=== PATIENT | female | born 1935 | race Caucasian/White ===

== ENCOUNTER 2018-04-20 08:48 | Observation (INO) | payer OTHER, BC ==
--- NOTE | 2018-04-20 08:50 | PDOC ---
History of Present Illness - General Chief Complaint: Head/Neck problem Stated Complaint: RIGHT HAND NUMBNESS Time Seen by Provider: 04/20/18 08:50 - History of Present Illness Initial Comments: 04/20/18 09:58 82yo female presents via ambulance for eval of R hand weakness. Pt states last time her hand felt normal was before she went to bed last night. States she woke up with a numb feeling to the hand and weakness of the hand. Pt is unable to fully flex or extend her digits. No berger. NO blurred vision. No facial droop or slurred speech. NO arm weakness. No paresthesias other than R hand. Radial pulses intact. NO cp/sob/palpitations. NO recent infections. NO f/c. NO cough. NO abd pain. No n/v/d. No urinary complaints. Pt arrived with the ambulance, but walked into the ED. Pt denies leg complaints. Pt arrives with her friend who states the patient is acting normal and is not altered. No trauma. No neck pain. No other complaints. PMHx: htn and skin ca PSHx: mohs surgery, skin ca removal All: NKDA tPA Exclusion checklist 3-4.5h - Time Elapsed Date last known well: 04/19/18 Time last known well: 23:00 Elaspsed time: Day(s) and 12 Hour(s) and 38 Minutes - Thrombolytic Therapy Candidate Is patient eligible for thrombolytic therapy: No - Ineligibility reason(s) Reasons No tPA given: Outside of window - delayed arrival (last normal was 11p last night. outside the window for tpa) NIH Stroke Scale - Last Known Well Date/Time & Onset Date Last Known Well: 04/19/18 Time Last Known Well: 23:00 - Initial Evaluation Level of consciousness: Alert Ask patient the month and their age: Answers both correctly Ask patient to open & close eyes; make fist and let go: Obeys both correctly Best gaze (horizontal eye movement): Normal Visual field testing: No visual field loss Facial paresis (Show teeth/raise eyebrows/close eyes tight): Normal symmetrical movement Motor Function: Left Arm: Normal Motor Function: Right Arm: No effort against gravity Motor Function: Left Leg: Normal (extends leg 30 degrees for 5 seconds without drift) Motor Function: Right Leg: Normal (extends leg 30 degrees for 5 seconds without drift) Limb Ataxia: No ataxia Sensory(Use pinprick test arms,legs,trunk,face/side to side): Normal Best language (Describe picture, name items, read sentences): No Aphasia Dysarthria (read several words): Normal articulation Extinction and Inattention: No abnormality - Total Score NIH Stroke Scale Score: 3 Past History - Past Medical History Allergies/Adverse Reactions: Allergies Allergy/AdvReac Type Severity Reaction Status Date / Time No Allergy Information Allergy Verified 04/20/18 11:20 Available Home Medications: Ambulatory Orders Amlodipine Besylate 2.5 mg PO DAILY 04/20/18 Aspirin [ASA -] 81 mg PO DAILY 04/20/18 Atorvastatin Calcium [Lipitor] 10 mg PO DAILY 04/20/18 Review of Systems - Review of Systems Able to Perform ROS?: Yes Is the patient limited French proficient: No Constitutional: No: Chills, Fever HEENTM: No: Eye Pain, Blurred Vision, Recent change in vision, Double Vision, Nose Congestion, Throat Pain Respiratory: No: Cough, Shortness of Breath Cardiac (ROS): No: Chest Pain, Edema, Irregular Heart Rate, Palpitations ABD/GI: No: Diarrhea, Nausea, Vomiting, Abdominal cramping : No: Burning, Dysuria Musculoskeletal: Yes: Other (R hand weakness and paresthesias). No: Back Pain, Neck Pain Integumentary: No: Rash Neurological: Yes: Paresthesia, Weakness (R hand). No: Headache, Numbness, Unsteady Gait, Ataxia All Other Systems: Reviewed and Negative *Physical Exam - Vital Signs 04/20/18 10:02 Selected Entries 04/20/18 08:50 Temperature 98.5 F Pulse Rate 64 Respiratory 18 Rate Blood Pressure 162/56 Blood Pressure 91 Mean O2 Sat by Pulse 99 Oximetry (%) Weight 70.307 kg - Physical Exam General Appearance: Yes: Nourished, Appropriately Dressed. No: Apparent Distress HEENT: positive: EOMI, KENNETH, Normal ENT Inspection, Pharynx Normal Neck: positive: Trachea midline, Supple. negative: Tender, Tender lateral, Tender midline Respiratory/Chest: positive: Lungs Clear, Normal Breath Sounds. negative: Respiratory Distress Cardiovascular: positive: Regular Rhythm, Regular Rate, S1, S2. negative: Edema Gastrointestinal/Abdominal: positive: Normal Bowel Sounds, Soft. negative: Guarding, Rebound, Tenderness Musculoskeletal: positive: Normal Inspection. negative: CVA Tenderness, Decreased Range of Motion, Muscle Spasm, Vertebral Tenderness Extremity: positive: Normal Capillary Refill, Other (R hand weakness with abduction and adduction of fingers, weakness in the wrist, sensation intact, brisk cap refill, no tendon ttp, no erythema or warmth, weakness of wrist flexion and extion). negative: Calf Tenderness Integumentary: positive: Normal Color, Dry, Warm. negative: Rash, Ecchymosis Neurologic: positive: audio installer II-XII NML intact, Fully Oriented, Alert, Responsive, Other (ambulatory with a steady gait). negative: Motor Strength 5/5 (muscle strength 5/5 to LUE and b/l LE, muscle strength is 2/5 to distal R hand and wrist), Facial Droop, Numbness, Sensory Deficit Heart Score/ECG Review - ECG Intrepretation Comment:: 04/20/18 10:08 sinus at 62, nl axis, lafb, lvh, no acute st/t wave findings ED Treatment Course - LABORATORY CBC & Chemistry Diagram: 04/20/18 09:45 04/20/18 10:10 Medical Decision Making - Medical Decision Making 04/20/18 10:05 a/p: 82yo female with R hand paresthesias and weakness since waking up this AM -last normal was last night -concern for cva, but outside the window for TPA given last normal was 11p last night. Pt with weakess to R hand -sensation intact -no signs of compartment syndrome or infection -will obtain head ct, labs, ekg, cxr -will discuss with neuro -cards: Dr. Ferrari ([facility]) -PMD: Dr. Nails -will most likely need admission for cva 04/20/18 11:[address] Nails admits to Dr. Prieto who does not come to [facility] consult placed to neuro head ct negative will give asa will call neuro - Dr. Cowart will admit for poss cva and R hand weakness case discussed with SEGUNDO means from [facility] who accepts pt to service 04/20/18 11:[address] Ferrari who will see the patient in consult 04/20/18 11:20 pt updated on results and need to stay for further eval 04/20/18 11:[address] Cowart who will see the patient in consult. poss cva vs radial nerve palsy *DC/Admit/Observation/Transfer Diagnosis at time of Disposition: Weakness of right hand, CVA (cerebral vascular accident) - Discharge Dispostion Condition at time of disposition: Guarded Decision to Admit order: Yes - Referrals Referrals: Byron Nails MD [Primary Care Provider] - - Patient Instructions - Post Discharge Activity - Attestations Physician Attestion: 04/20/18 11:09 I, Dr. Crissy Brewer, DO, attest that this document has been prepared under my direction and personally reviewed by me in its entirety. I further attest, that it accurately reflects all work, treatment, procedures and medical decision -making performed by me.
[2018-04-20 08:54] VITALS: BMI 26.6
[2018-04-20] MEDS ORDERED: HEMOQUE CONTROL SOLUTION ONE (09:26)
[2018-04-20 10:05] LABS: BASO % 2.3 % (0-2.0); EOS % 8.7 % (0-4.5); HEMATOCRIT 38.7 % (32.4-45.2); HEMOGLOBIN 12.7 GM/dl (10.7-15.3); LYMPH % 21.3 % (8-40); MCH 29.7 pg (25.7-33.7); MCHC 32.7 g/dl (32.0-36.0); MEAN CELL VOLUME 90.9 fl (80-96); MONO % 8.7 % (3.8-10.2); PLATELET COUNT 279 K/MM3 (134-434); RBC 4.26 M/mm3 (3.60-5.2); RDW 13.2 % (11.6-15.6); WHITE BLOOD COUNT 7.1 K/mm3 (4.0-10.8)
[2018-04-20 10:09] LABS: URINE APPEARANCE Clear; URINE BILIRUBIN Negative (NEGATIVE); URINE COLOR Yellow; URINE GLUCOSE (UA) Negative (NEGATIVE); URINE KETONE Negative (NEGATIVE); URINE LEUK ESTERASE 1+ (NEGATIVE); URINE NITRITE Negative (NEGATIVE); URINE PROTEIN Negative (NEGATIVE); URINE UROBILINOGEN 0.2 (0.2-1.0)
[2018-04-20 10:13] LABS: ACTIVATED PTT 25.6 SECONDS (25.2-36.5)
[2018-04-20 10:17] LABS: INR 0.98 (0.82-1.09)
[2018-04-20 10:33] LABS: EPI CELLS FEW /HPF; URINE RBC 0-1 /hpf (0-3)
[2018-04-20 10:38] LABS: ALK PHOS 76 U/L (32-92); ANION GAP 4 MMOL/L (8-16); BILIRUBIN,TOTAL 1.6 mg/dl (0.2-1.0); BLOOD UREA NITROGEN 15 mg/dl (7-18); CALCIUM 9.8 mg/dl (8.4-10.2); CHLORIDE 105 mmol/L (98-107); CO2 27 mmol/L (22-28); GLUCOSE,RANDOM 115 mg/dl (74-106); POTASSIUM 4.2 mmol/L (3.5-5.1); SGOT/AST 21 U/L (10-42); SGPT/ALT 17 U/L (10-40); SODIUM 136 mmol/L (136-145); TOT PROT 6.8 g/dl (6.4-8.3)
[2018-04-20] MEDS ORDERED: ASPIRIN 325 MG TABLET ONE (11:34)
[2018-04-20] MEDS ORDERED: ASPIRIN 81 MG CHEWABLE TABLETS PO ONE (11:38)
[2018-04-20] MEDS ORDERED: ASPIRIN 325 MG ENTERIC COATED TABLET (FP) PO ONE (12:07)
--- NOTE | 2018-04-20 12:07 | HP ---
CHIEF COMPLAINT: right hand paresthesia PCP: Dr Alfredo HISTORY OF PRESENT ILLNESS: patient is a 82-year-old female with a past medical history of hypertension, pre DM, and basal cell carcinoma. Patient reports that she awoke this morning with right hand paresthesia and weakness. She reports that she went to bed last evening (04/19/2018) at 11 PM feeling well. She awoke she noted persistent paresthesia to her right hand and inability to fully flex and extend the digits of the hand. Patient denies any headache, slurred speech. Patient denies any trauma to the extremity. ER course was notable for: (1)EKG normal sinus rhythm, normal axis, left anterior fascicular block. (2)CT of head no acute pathology (3)neurologist Dr Mayfield consulted by ED physician Dr Vazquez Recent Travel: none PAST MEDICAL HISTORY: see history of present illness PAST SURGICAL HISTORY:Mohs surgery Social History:retired resides at home alone Smoking:none Alcohol:none Drugs: none Family History:mother CVA father unknown, brother coronary artery disease. Allergies No Allergy Information Available Allergy (Verified 04/20/18 11:20) pt states shes allergic to an antibiotic begins with a C, pt unable to recall. HOME MEDICATIONS: Home Medications Medication Instructions Recorded Amlodipine Besylate 2.5 mg PO DAILY 04/20/18 Aspirin [ASA -] 81 mg PO DAILY 04/20/18 Atorvastatin Calcium [Lipitor] 10 mg PO DAILY 04/20/18 REVIEW OF SYSTEMS CONSTITUTIONAL: Absent: fever, chills, diaphoresis, generalized weakness, malaise, loss of appetite, weight change HEENT: Absent: rhinorrhea, nasal congestion, throat pain, throat swelling, difficulty swallowing, mouth swelling, ear pain, eye pain, visual changes CARDIOVASCULAR: Absent: chest pain, syncope, palpitations, irregular heart rate, lightheadedness , peripheral edema RESPIRATORY: Absent: cough, shortness of breath, dyspnea with exertion, orthopnea, wheezing, stridor, hemoptysis GASTROINTESTINAL: Absent: abdominal pain, abdominal distension, nausea, vomiting, diarrhea, constipation, melena, hematochezia GENITOURINARY: Absent: dysuria, frequency, urgency, hesitancy, hematuria, flank pain, genital pain MUSCULOSKELETAL: Absent: myalgia, arthralgia, joint swelling, back pain, neck pain SKIN: Absent: rash, itching, pallor HEMATOLOGIC/IMMUNOLOGIC: Absent: easy bleeding, easy bruising, lymphadenopathy, frequent infections ENDOCRINE: Absent: unexplained weight gain, unexplained weight loss, heat intolerance, cold intolerance NEUROLOGIC: Present: focal weakness or paresthesias Absent: headache, , dizziness, unsteady gait, seizure, mental status changes, bladder or bowel incontinence PSYCHIATRIC: Absent: anxiety, depression, suicidal or homicidal ideation, hallucinations. PHYSICAL EXAMINATION Vital Signs - 24 hr 04/20/18 04/20/18 04/20/18 08:50 10:03 11:18 Temperature 98.5 F Pulse Rate 64 Pulse Rate [ 60 65 Apical] Respiratory 18 18 Rate Blood Pressure 162/56 Blood Pressure 178/59 171/52 [Left Arm] O2 Sat by Pulse 99 99 99 Oximetry (%) 04/20/18 11:30 Temperature Pulse Rate Pulse Rate [ 70 Apical] Respiratory Rate Blood Pressure Blood Pressure 141/84 [Left Arm] O2 Sat by Pulse Oximetry (%) GENERAL: Awake, alert, and fully oriented, in no acute distress. HEAD: Normal with no signs of trauma. EYES: Pupils equal, round and reactive to light, extraocular movements intact, sclera anicteric, conjunctiva clear. No lid lag. EARS, NOSE, THROAT: Ears normal, nares patent, oropharynx clear without exudates. Moist mucous membranes. NECK: Normal range of motion, supple without lymphadenopathy, JVD, or masses. LUNGS: Breath sounds equal, clear to auscultation bilaterally. No wheezes, and no crackles. No accessory muscle use. HEART: irregular rate and rhythm, normal S1 and S2 without murmur, rub or gallop. ABDOMEN: Soft, nontender, not distended, normoactive bowel sounds, no guarding, no rebound, no masses. No hepatomegaly or splenomegaly. MUSCULOSKELETAL: Normal range of motion at all joints. No bony deformities or tenderness. No CVA tenderness. UPPER EXTREMITIES: 2+ pulses, warm, well-perfused. No cyanosis. No clubbing. No peripheral edema. right hand inability to flex and extend the digits of the hand LOWER EXTREMITIES: 2+ pulses, warm, well-perfused. No calf tenderness. No peripheral edema. NEUROLOGICAL: Cranial nerves II-XII intact. Normal speech. Normal gait. upper extremity 2/3 lower extremity 3/3 PSYCHIATRIC: Cooperative. Good eye contact. Appropriate mood and affect. SKIN: Warm, dry, normal turgor, no rashes or lesions noted, normal capillary refill. Laboratory Results - last 24 hr 04/20/18 04/20/18 04/20/18 09:29 09:33 09:45 WBC 7.1 RBC 4.26 Hgb 12.7 Hct 38.7 MCV 90.9 MCH 29.7 MCHC 32.7 RDW 13.2 Plt Count 279 MPV 9.0 Absolute Neuts (auto) 4.2 Neutrophils % 59.0 Lymphocytes % 21.3 Monocytes % 8.7 Eosinophils % 8.7 H Basophils % 2.3 H PT with INR INR PTT (Actin FS) Sodium Potassium Chloride Carbon Dioxide Anion Gap BUN Creatinine Creat Clearance w eGFR POC Glucometer [phone] Random Glucose Calcium Magnesium Total Bilirubin AST ALT Alkaline Phosphatase Creatine Kinase Troponin I 0.03 Total Protein Albumin Urine Color Urine Appearance Urine pH Ur Specific [place] Urine Protein Urine Glucose (UA) Urine Ketones Urine Blood Urine Nitrite Urine Bilirubin Urine Urobilinogen Ur Leukocyte Esterase Urine RBC Urine WBC Ur Epithelial Cells 04/20/18 04/20/18 04/20/18 09:45 10:02 10:10 WBC RBC Hgb Hct MCV MCH MCHC RDW Plt Count MPV Absolute Neuts (auto) Neutrophils % Lymphocytes % Monocytes % Eosinophils % Basophils % PT with INR 11.0 INR 0.98 PTT (Actin FS) 25.6 Sodium 136 Potassium 4.2 Chloride 105 Carbon Dioxide 27 Anion Gap 4 L BUN 15 Creatinine 1.0 Creat Clearance w eGFR 53.08 POC Glucometer Random Glucose 115 H Calcium 9.8 Magnesium 2.0 Total Bilirubin 1.6 H AST 21 ALT 17 Alkaline Phosphatase 76 Creatine Kinase 65 Troponin I Total Protein 6.8 Albumin 4.0 Urine Color Yellow Urine Appearance Clear Urine pH 6.0 Ur Specific [place] 1.010 Urine Protein Negative Urine Glucose (UA) Negative Urine Ketones Negative Urine Blood Negative Urine Nitrite Negative Urine Bilirubin Negative Urine Urobilinogen 0.2 Ur Leukocyte Esterase 1+ H Urine RBC 0-1 Urine WBC 5-8 Ur Epithelial Cells Few ASSESSMENT/PLAN: 1) neuro right upper extremity weakness r/o CVA - Ct of brain reviewed, no acute pathology - frequent neurovascular checks - continue daily asa and statin - neurology Dr Ramey consulted by ED physician, appreciate neurology input 2) cardiovascular hypertension - continue home dose amlodipine -blood pressure every 4 hours - pending lipid profile - Continuous cardiac monitoring, pending echo f/e/n - low sodium diet - replete electrolytes prn PPX - oob - physical therapy dispo: pt requires obsv admission Problem List - Problem (1) Weakness of right hand Code(s): R29.898 - [facility] SYMPTOMS AND SIGNS INVOLVING THE MUSCULOSKELETAL SYSTEM Visit type - Emergency Visit Emergency Visit: Yes ED Registration Date: 04/20/18 Care time: The patient presented to the Emergency Department on the above date and was hospitalized for further evaluation of their emergent condition. - New Patient This patient is new to me today: Yes Date on this admission: 04/21/18 - Critical Care Critical Care patient: No Hospitalist Screening - Colonoscopy Questionnaire Colonoscopy Questionnaire: Colonoscopy Questionnaire - Patient: 50 - 75 years old and never had a screening colonoscopy: No History of colon or rectal polyps, or CA: No History of IBD, Crohn's disease or UC: No History of abdominal radiation therapy as a child: No - Relative: 1 with colon or rectal CA, or polyps at age 60 or younger: No Colon or rectal CA diagnosed at age 45 or younger: No Multiple relatives with colon or rectal CA: No - Outcome: Screening Result: Negative Screen
[2018-04-20] MEDS ORDERED: ACETAMINOPHEN 325 MG TABLET (FP) PO PRN (12:08)
--- NOTE | 2018-04-20 12:25 | CONSULT ---
Admitting History and Physical - Primary Care Physician PCP: Karol Clark - Admission History of Present Illness: Per EMR: 82yo female presents via ambulance for eval of R hand weakness. Pt states last time her hand felt normal was before she went to bed last night. States she woke up with a numb feeling to the hand and weakness of the hand. Pt is unable to fully flex or extend her digits. No berger. NO blurred vision. No facial droop or slurred speech. NO arm weakness. No paresthesias other than R hand. Radial pulses intact. NO cp/sob/palpitations. NO recent infections. NO f/c. NO cough. NO abd pain. No n/v/d. No urinary complaints. Pt arrived with the ambulance, but walked into the ED. Pt denies leg complaints. Pt arrives with her friend who states the patient is acting normal and is not altered. No trauma. No neck pain. No other complaints. - Smoking History Smoking history: Never smoked - Alcohol/Substance Use Hx Alcohol Use: No History - Admission Reason For Visit: RIGHT HAND NUMBNESS
--- NOTE | 2018-04-20 15:31 | CONSULT ---
Admitting History and Physical - Primary Care Physician PCP: Karol Clark - Admission History of Present Illness: Per EMR: 82yo female presents via ambulance for eval of R hand weakness. Pt states last time her hand felt normal was before she went to bed last night. States she woke up with a numb feeling to the hand and weakness of the hand. Pt is unable to fully flex or extend her digits. No berger. NO blurred vision. No facial droop or slurred speech. NO arm weakness. No paresthesias other than R hand. Radial pulses intact. NO cp/sob/palpitations. NO recent infections. NO f/c. NO cough. NO abd pain. No n/v/d. No urinary complaints. Pt arrived with the ambulance, but walked into the ED. Pt denies leg complaints. Pt arrives with her friend who states the patient is acting normal and is not altered. No trauma. No neck pain. No other complaints. Pt presents with isolated right hand weakness, with greater difficulty with fine motor. Pt is right hand dominant. She is able to feed herself with some difficulty, but unable to open the [place] package. History Source: Patient Limitations to Obtaining History: No Limitations - Advance Directives Advance Directives: Yes: Living Will, Health Care Proxy - Smoking History Smoking history: Former smoker Have you smoked in the past 12 months: No If you are a former smoker, when did you quit?: 40 YEARS AGO - Alcohol/Substance Use Hx Alcohol Use: Yes (SOCIAL) - Social History Usual Living Arrangement: Yes: Alone, Other (Never .) Occupation: retired History - Admission Reason For Visit: WEAKNESS RIGHT HAND, CEREBROVASCULAR ACCIDENT CVA - Diagnostics CT Scan: Report Reviewed Other: Report Reviewed (keshav u/s noted) - General Mental Status: Alert and Oriented, Awake and Alert, Able to Follow Commands Attention: Intact Ability to Follow Directions: Excellent Head/Neck Control: WFL - Hearing Hearing: Functional Speech Evaluation - Communication Primary Language: FRISIAN Communication: Yes: Within Normal Limits Oral Expression Ability: Yes: No Impairment - Speech Production Able to Make Needs Known: Yes: WNL Intelligibility: Yes: WNL - Speech Characteristics Voice Loudness: Normal Voice Pitch: Yes: Normal Voice Phonatory-based Quality: Yes: Normal Speech Pattern: Normal Speech Clarity: < 100% Nasal Resonance: Normal Articulation: Yes: Precise Rate of Speech: Intact - Language/Auditory Comprehension Follows: Yes: 2 Stage Simple Commands Observation: Able to respond to yes/no queries: Yes, Yes/No Confusion: No, Comprehends Conversational Speech: Yes - Language/Verbal Expression Aphasia: Yes: Anomia (with aging. Unchanged.) Able to Respond to Simple Queries: Yes: WNL Able to Communicate Wants and Needs: Yes: WNL Functional Communication Status: Yes: WNL - Swallow Evaluation/Bedside Assessment Current Nutritional Intake: Regular, Thin Liquids Oral Secretions: Yes: WFL Dentition: Yes: Adequate Facial Symmetry at Rest: Symmetrical Facial Symmetry on Retraction: Symmetrical Sensation: Normal Against Resistance Opening: Normal Against Resistance Closing: Normal Pucker Lips: Normal Smile: Normal Lingual Movement: Normal, Symmetric Lingual Speed of Movement: Normal Lingual Movement Strgth Against Opposition: Normal Lingual Movement Characteristics: Normal Velopharyngeal Movement: Normal Laryngeal Elevation: WFL Laryngeal Movement: Able to Palpate Rate of Intake: WFL Bolus Size: WFL Labial Seal: WFL Chewing: WFL Oral Prep Time: WFL A-P Transit: WFL Pocketing: None Timing of Swallow: WFL Coughing/Throat Clear: No Change in Voice: No Recommendations - Speech Evaluation, Impression/Plan Impression: Speech production, language expression/comprehension,cognition, swallowing all functional without change. New onset right hand (dominant) weakness. - Dysphagia Impressions/Plan Swallowing Skills: WF Dysphagia Impressions: No Impairment - Recommendations Diet Consistency: Regular Medication Administration: Whole with water Liquids: Thin Liquids
--- NOTE | 2018-04-20 15:31 | ECHO ---
Name: DELL BERGMAN Exam:Adult Echocardiogram Study Date: 04/20/2018 01:35 PM Age: 82 yrs Reason For Study: R/O CVA Height: 64 in Weight: 154 lb BSA: 1.8 m2 MMode/2D Measurements & Calculations IVSd: 1.2 cm Ao root diam: 2.8 cm LVIDd: 4.1 cm LA dimension: 3.4 cm LVIDs: 2.5 cm LVPWd: 0.95 cm EDV(Teich): 75.5 ml LVOT diam: 2.0 cm ESV(Teich): 22.1 ml Doppler Measurements & Calculations MV E max mary lou: 105.2 cm/sec MV A max mary lou: 110.7 cm/sec MV dec slope: 481.2 cm/sec2 MV E/A: 0.95 Ao V2 max: 198.5 cm/sec LV V1 max P.2 mmHg Ao max P.8 mmHg LV V1 mean P.1 mmHg Ao V2 mean: 144.1 cm/sec LV V1 max: 114.5 cm/sec Ao mean P.2 mmHg LV V1 mean: 82.9 cm/sec Ao V2 VTI: 55.9 cm LV V1 VTI: 30.2 cm EVA(I,D): 1.7 cm2 EVA(V,D): 1.8 cm2 MR max mary lou: 492.0 cm/sec SV(LVOT): 94.1 ml MR max P.9 mmHg TR max mary lou: 209.4 cm/sec TR max P.5 mmHg Procedure A complete two-dimensional transthoracic echocardiogram was performed (2D, M-mode, Doppler and color flow Doppler). Study Quality: Technically suboptimal. The patient was in normal sinus rhythm during the ex am. Left Ventricle The left ventricular size, thickness and function are normal. Grade I diastolic dysfunction, (abnorma l relaxation pattern). The left ventricular wall motion is normal. Right Ventricle The right ventricle is normal in size and function. There is normal right ventricular wall thickness. Atria Normal left and right atrial size and function. Mitral Valve There is mild mitral annular calcification. There is mild mitral regurgitation. Tricuspid Valve The tricuspid valve is normal in structure and function. There is trace tricuspid regurgitation. Aortic Valve There is moderate aortic sclerosis.;. Mild aortic regurgitation. Pulmonic Valve The pulmonic valve is normal in structure and function. Trace pulmonic valvular regurgitation. Great Vessels The aortic root is normal size. Pericardium/Pleura There is no pericardial effusion. Interpretation Summary The left ventricular size, thickness and function are normal There is mild mitral annular calcification. There is mild mitral regurgitation. There is moderate aortic sclerosis.; Mild aortic regurgitation. Zia Smith 04/20/2018 03:31 PM
--- NOTE | 2018-04-20 17:11 | CON.CARD ---
Cardiology Consult (text) - Consultation Consultation Note: cc: right arm weak/numb hpi: 82 f hx htn, hld, dm, le edema/venous insuff, here with right arm weakness /numbness. No cp, sob, palps, dizzy, loc, pnd, orthopnea, le edema. pmh: per hpi psh: skin cancer removal social: ex tob fam: no premature cad, scd ros: per hpi; no nvd, fever, cough, berger vision changes gib hematuria dysuria meds: Ambulatory Orders Amlodipine Besylate 2.5 mg PO DAILY 04/20/18 Aspirin [ASA -] 81 mg PO DAILY 04/20/18 Atorvastatin Calcium [Lipitor] 10 mg PO DAILY 04/20/18 pe: Vital Signs Period Temp Pulse Resp BP Sys/Unger Pulse Ox Last 24 Hr 98.5 F-98.9 F 60-70 16-18 141-178/50-84 99-99 nad no jvd rrr s1s2 no mrg cta bl nl eff aaox3 no le e/c/c abd nd nt pos bs no janudice diaphoresis pos dp pt no carotid bruits Laboratory Last Values WBC 7.1 K/mm3 (4.0-10.8) 04/20/18 09:45 RBC 4.26 M/mm3 (3.60-5.2) 04/20/18 09:45 Hgb 12.7 GM/dl (10.7-15.3) 04/20/18 09:45 Hct 38.7 % (32.4-45.2) 04/20/18 09:45 MCV 90.9 fl (80-96) 04/20/18 09:45 MCH 29.7 pg (25.7-33.7) 04/20/18 09:45 MCHC 32.7 g/dl (32.0-36.0) 04/20/18 09:45 RDW 13.2 % (11.6-15.6) 04/20/18 09:45 Plt Count 279 K/MM3 (134-434) 04/20/18 09:45 MPV 9.0 fl (7.5-11.1) 04/20/18 09:45 Absolute Neuts (auto) 4.2 K/mm3 04/20/18 09:45 Neutrophils % 59.0 % (42.8-82.8) 04/20/18 09:45 Lymphocytes % 21.3 % (8-40) 04/20/18 09:45 Monocytes % 8.7 % (3.8-10.2) 04/20/18 09:45 Eosinophils % 8.7 % (0-4.5) H 04/20/18 09:45 Basophils % 2.3 % (0-2.0) H 04/20/18 09:45 PT with INR 11.0 SEC (10.2-13.0) 04/20/18 09:45 INR 0.98 (0.82-1.09) 04/20/18 09:45 PTT (Actin FS) 25.6 SECONDS (25.2-36.5) 04/20/18 09:45 Sodium 136 mmol/L (136-145) 04/20/18 10:10 Potassium 4.2 mmol/L (3.5-5.1) 04/20/18 10:10 Chloride 105 mmol/L (98-107) 04/20/18 10:10 Carbon Dioxide 27 mmol/L (22-28) 04/20/18 10:10 Anion Gap 4 MMOL/L (8-16) L 04/20/18 10:10 BUN 15 mg/dl (7-18) 04/20/18 10:10 Creatinine 1.0 mg/dl (0.6-1.3) 04/20/18 10:10 Creat Clearance w eGFR 53.08 (>60) 04/20/18 10:10 POC Glucometer 104.94879 UNITS (80-120) 04/20/18 09:29 Random Glucose 115 mg/dl (74-106) H 04/20/18 10:10 Calcium 9.8 mg/dl (8.4-10.2) 04/20/18 10:10 Magnesium 2.0 mg/dL (1.8-2.4) 04/20/18 10:10 Total Bilirubin 1.6 mg/dl (0.2-1.0) H 04/20/18 10:10 AST 21 U/L (10-42) 04/20/18 10:10 ALT 17 U/L (10-40) 04/20/18 10:10 Alkaline Phosphatase 76 U/L (32-92) 04/20/18 10:10 Creatine Kinase 108 IU/L (26-192) 04/20/18 12:45 Troponin I 0.04 ng/ml (0.00-0.06) 04/20/18 12:45 Total Protein 6.8 g/dl (6.4-8.3) 04/20/18 10:10 Albumin 4.0 g/dl (3.5-5.0) 04/20/18 10:10 Urine Color Yellow 04/20/18 10:02 Urine Appearance Clear 04/20/18 10:02 Urine pH 6.0 (4.5-8) 04/20/18 10:02 Ur Specific [place] 1.010 (1.005-1.025) 04/20/18 10:02 Urine Protein Negative (NEGATIVE) 04/20/18 10:02 Urine Glucose (UA) Negative (NEGATIVE) 04/20/18 10:02 Urine Ketones Negative (NEGATIVE) 04/20/18 10:02 Urine Blood Negative (NEGATIVE) 04/20/18 10:02 Urine Nitrite Negative (NEGATIVE) 04/20/18 10:02 Urine Bilirubin Negative (NEGATIVE) 04/20/18 10:02 Urine Urobilinogen 0.2 (0.2-1.0) 04/20/18 10:02 Ur Leukocyte Esterase 1+ (NEGATIVE) H 04/20/18 10:02 Urine RBC 0-1 /hpf (0-3) 04/20/18 10:02 Urine WBC 5-8 (0-5) 04/20/18 10:02 Ur Epithelial Cells Few /HPF 04/20/18 10:02 Blood Type B POSITIVE 04/20/18 10:10 Antibody Screen Negative 04/20/18 10:10 echo 03/2018: nl lv/rv, mild mr, mild ar carotids 03/2018: 50-69% bl stenosis ecg: sr, nl intervals, no ischemic changes cxr: clear lungs stress echo 01/2017: non diagnostic (only 65% mphr) head ct: no acute findings a/p: 82 f hx htn, hld, dm, le edema/venous insuff, here with right arm weakness /numbness. possible cva: -echo unremarkable -no acute head ct findings -neuro eval pending -tele monitoring while admitted -consider outpt event monitor if cva is suspected htn: -cont norvasc hld: -cont statin le edema/venous insuff: -cont prn torsemide 20 qd dm: -recent outpt a1c controlled, 6.3
--- NOTE | 2018-04-20 18:22 | CON.NEURO ---
Consult - History of Present Illness History of Present Illness: 82-year-old female with a past medical history of hypertension, pre DM, and basal cell carcinoma. Patient reports that she awoke this morning with right hand paresthesia and weakness. She reports that she went to bed last evening () at 11 PM feeling well. She awoke she noted persistent paresthesia to her right hand and inability to fully flex and extend the digits of the hand. Patient denies any headache, slurred speech. Patient denies any trauma to the extremity. admits she slept on floor last night--"long story" ; denies trauma or fall or ETOH. - Alcohol/Substance Use Hx Alcohol Use: Yes (SOCIAL) - Smoking History Smoking history: Former smoker Have you smoked in the past 12 months: No If you are a former smoker, when did you quit?: 40 YEARS AGO - Social History Occupation: retired Home Medications - Allergies Allergies/Adverse Reactions: Allergies Allergy/AdvReac Type Severity Reaction Status Date / Time No Allergy Information Allergy Verified 04/20/18 11:20 Available - Home Medications Home Medications: Ambulatory Orders Amlodipine Besylate 2.5 mg PO DAILY 04/20/18 Aspirin [ASA -] 81 mg PO DAILY 04/20/18 Atorvastatin Calcium [Lipitor] 10 mg PO DAILY 04/20/18 Physical Exam-Neuro Vital Signs: Vital Signs Temperature 98.9 F 04/20/18 14:20 Pulse Rate 64 04/20/18 14:20 Respiratory Rate 16 04/20/18 14:20 Blood Pressure 146/50 04/20/18 14:20 O2 Sat by Pulse Oximetry (%) 99 04/20/18 12:37 Labs: CBC, BMP 04/20/18 09:45 04/20/18 10:10 INR, PTT INR 0.98 (0.82-1.09) 04/20/18 09:45 - Neuro Exam Level Of Consciousness: Yes: Alert, Oriented to Person (EOMI, no facial, motor: weakness R EDC; interoseei stronge when wrist placed flat , finger flexors strong , Abductor pollicus longus weak, no focal weakness RLE or face ) Problem List - Problems (1) Wrist drop Code(s): M21.339 - WRIST DROP, UNSPECIFIED WRIST (2) Radial nerve compression Code(s): G56.30 - LESION OF RADIAL NERVE, UNSPECIFIED UPPER LIMB (3) Weakness of right hand Code(s): R29.898 - OTH SYMPTOMS AND SIGNS INVOLVING THE MUSCULOSKELETAL SYSTEM Assessment/Plan suspect R radial nerve entrapment , spiral groove or below doubt stroke given exam and limited other findings RLE or face PT/OT and wrist splint if possible outpt EMG can FU outpt [place] office thanks DR ELIZABETH [phone]
[2018-04-20] MEDS: HEPARIN NA (PORCINE) 5,000 UNITS/ML 1ML VIAL SQ SCH (21:54)
[2018-04-21 08:21] LABS: BASO % 0.4 % (0-2.0); EOS % 10.3 % (0-4.5); HEMATOCRIT 37.2 % (32.4-45.2); HEMOGLOBIN 12.2 GM/dl (10.7-15.3); LYMPH % 29.9 % (8-40); MCHC 32.7 g/dl (32.0-36.0); MEAN CELL VOLUME 91.6 fl (80-96); MEAN PLT VOLUME 8.6 fl (7.5-11.1); MONO % 6.3 % (3.8-10.2); NEUT % 53.1 % (42.8-82.8); PLATELET COUNT 234 K/MM3 (134-434); RBC 4.07 M/mm3 (3.60-5.2); RDW 12.9 % (11.6-15.6)
[2018-04-21 08:27] LABS: INR 1.03 (0.82-1.09); PROTHROMBIN TIME (PATIENT) 11.5 SEC (10.2-13.0)
[2018-04-21 08:47] LABS: ALBUMIN 3.4 g/dl (3.5-5.0); ALK PHOS 70 U/L (32-92); ANION GAP 7 MMOL/L (8-16); BILIRUBIN,TOTAL 1.3 mg/dl (0.2-1.0); BLOOD UREA NITROGEN 13 mg/dl (7-18); CHLORIDE 104 mmol/L (98-107); CHOLESTEROL 185 mg/dl; CO2 28 mmol/L (22-28); CREATININE 0.9 mg/dl (0.6-1.3); GLUCOSE,RANDOM 132 mg/dl (74-106); HDL CHOLESTEROL 51 mg/dl (29-89); LDL CHOLESTEROL (ONLY DFH) 93 mg/dl; MAGNESIUM 2.1 mg/dL (1.8-2.4); PHOSPHOROUS 2.9 mg/dl (2.5-4.6); POTASSIUM 4.3 mmol/L (3.5-5.1); SGOT/AST 20 U/L (10-42); SGPT/ALT 15 U/L (10-40); SODIUM 139 mmol/L (136-145); TOT PROT 6.1 g/dl (6.4-8.3); TRIGLYCERIDES 206 mg/dl (35-160)
[2018-04-21 09:09] LABS: ERYTHROCYTE SEDIMENTATION RATE 18 mm/hr (0-30)
[2018-04-21] MEDS ORDERED: amLODIPine BESYLATE 2.5 MG TABLET (FP) PO SCH (10:00)
[2018-04-21] MEDS ORDERED: ASPIRIN COATED 81 MG TABLET.EC PO SCH (10:00)
[2018-04-21 10:05] VITALS: BP 140/56; PULSE 59; TEMP 98
[2018-04-21] MEDS: HEPARIN NA (PORCINE) 5,000 UNITS/ML 1ML VIAL SQ SCH (10:07)
--- NOTE | 2018-04-21 10:39 | DS ---
Physical Exam: SUBJECTIVE: Patient seen and examined, Patient is able to his nursing station, denies chest pain or shortness of breath, does report an improvement to the paresthesia of her right hand, tolerating diet, OBJECTIVE:patient is a 82-year-old female with a past medical history of hypertension, pre DM, and basal cell carcinoma. Patient reports that she awoke this morning with right hand paresthesia and weakness. She reports that she went to bed last evening (04/19/2018) at 11 PM feeling well. She awoke she noted persistent paresthesia to her right hand and inability to fully flex and extend the digits of the hand. Patient denies any headache, slurred speech. Patient denies any trauma to the extremity. ER course was notable for: (1)EKG normal sinus rhythm, normal axis, left anterior fascicular block. (2)CT of head no acute pathology (3)neurologist Dr Mayfield consulted by ED physician Dr Vazquez Vital Signs Period Temp Pulse Resp BP Sys/Unger Pulse Ox Last 24 Hr 98.0 F-98.9 F 56-70 16-20 140-171/39-84 95-99 PHYSICAL EXAM GENERAL: Awake, alert, and fully oriented, in no acute distress. HEAD: Normal with no signs of trauma. EYES: Pupils equal, round and reactive to light, extraocular movements intact, sclera anicteric, conjunctiva clear. No lid lag. EARS, NOSE, THROAT: Ears normal, nares patent, oropharynx clear without exudates. Moist mucous membranes. NECK: Normal range of motion, supple without lymphadenopathy, JVD, or masses. LUNGS: Breath sounds equal, clear to auscultation bilaterally. No wheezes, and no crackles. No accessory muscle use. HEART: irregular rate and rhythm, normal S1 and S2 without murmur, rub or gallop. ABDOMEN: Soft, nontender, not distended, normoactive bowel sounds, no guarding, no rebound, no masses. No hepatomegaly or splenomegaly. MUSCULOSKELETAL: Normal range of motion at all joints. No bony deformities or tenderness. No CVA tenderness. UPPER EXTREMITIES: 2+ pulses, warm, well-perfused. No cyanosis. No clubbing. No peripheral edema. right hand inability to flex and extend the digits of the hand LOWER EXTREMITIES: 2+ pulses, warm, well-perfused. No calf tenderness. No peripheral edema. NEUROLOGICAL: Cranial nerves II-XII intact. Normal speech. Normal gait. upper extremity 2/3 lower extremity 3/3 PSYCHIATRIC: Cooperative. Good eye contact. Appropriate mood and affect. SKIN: Warm, dry, normal turgor, no rashes or lesions noted, normal capillary refill. LABS Laboratory Results - last 24 hr 04/20/18 04/20/18 04/20/18 09:33 10:10 10:10 WBC RBC Hgb Hct MCV MCH MCHC RDW Plt Count MPV Absolute Neuts (auto) Neutrophils % Lymphocytes % Monocytes % Eosinophils % Basophils % ESR PT with INR INR Sodium 136 Potassium 4.2 Chloride 105 Carbon Dioxide 27 Anion Gap 4 L BUN 15 Creatinine 1.0 Creat Clearance w eGFR 53.08 Random Glucose 115 H Hemoglobin A1c % Calcium 9.8 Phosphorus Magnesium 2.0 Total Bilirubin 1.6 H AST 21 ALT 17 Alkaline Phosphatase 76 Creatine Kinase 65 Troponin I 0.03 C-Reactive Protein Total Protein 6.8 Albumin 4.0 Triglycerides Cholesterol Total LDL Cholesterol HDL Cholesterol Vitamin B12 TSH Blood Type B POSITIVE Antibody Screen Negative 04/20/18 04/20/18 04/21/18 12:45 12:45 07:33 WBC RBC Hgb Hct MCV MCH MCHC RDW Plt Count MPV Absolute Neuts (auto) Neutrophils % Lymphocytes % Monocytes % Eosinophils % Basophils % ESR PT with INR INR Sodium 139 Potassium 4.3 Chloride 104 Carbon Dioxide 28 Anion Gap 7 L BUN 13 Creatinine 0.9 Creat Clearance w eGFR 59.94 Random Glucose 132 H Hemoglobin A1c % Calcium 10.0 Phosphorus 2.9 Magnesium 2.1 Total Bilirubin 1.3 H AST 20 ALT 15 Alkaline Phosphatase 70 Creatine Kinase 108 Troponin I 0.04 C-Reactive Protein 0.3 Total Protein 6.1 L Albumin 3.4 L Triglycerides 206 H Cholesterol 185 Total LDL Cholesterol 93 HDL Cholesterol 51 Vitamin B12 629 TSH 3.66 Blood Type Antibody Screen 04/21/18 04/21/18 04/21/18 07:33 07:33 08:00 WBC 18.0 H RBC 4.07 Hgb 12.2 Hct 37.2 MCV 91.6 MCH 30.0 MCHC 32.7 RDW 12.9 Plt Count 234 MPV 8.6 Absolute Neuts (auto) 3.6 Neutrophils % 53.1 Lymphocytes % 29.9 Monocytes % 6.3 Eosinophils % 10.3 H Basophils % 0.4 ESR 18 PT with INR 11.5 INR 1.03 Sodium Potassium Chloride Carbon Dioxide Anion Gap BUN Creatinine Creat Clearance w eGFR Random Glucose Hemoglobin A1c % 6.5 H Calcium Phosphorus Magnesium Total Bilirubin AST ALT Alkaline Phosphatase Creatine Kinase Troponin I C-Reactive Protein Total Protein Albumin Triglycerides Cholesterol Total LDL Cholesterol HDL Cholesterol Vitamin B12 TSH Blood Type Antibody Screen Microbiology 04/20/18 12:36 Urine Culture - Preliminary Urine - Urine Clean Catch Beta Hemolytic Strep IMAGING -CT of head no acute pathology - carotid ultrasound, moderate sized plaques at right common carotid bifurcation , 50-69% stenosis of right carotid artery and left carotid artery 50-69% stenosis of right carotid artery HOSPITAL COURSE: Patient was admitted from the emergency department for right upper extremity weakness and r/o CVA. Ct of head reviewed as above, paresthesia and palsy is focal. neurology, Dr Cowart was consulted, symptoms are most consistent with right radial nerve compression, unlikely CVA. ASA and statin was continued daily. she has a past medical history hypertension, home dose of amlodipine continued to admission, echocardiogram completed LV wnl. PLAN - discharge home, continue home medications - strict follow up with ortho/hand and PCP within 2 weeks - return precautions reviewed Date of Admission:04/20/18 Date of Discharge: 04/21/18 Minutes to complete discharge: 45 Discharge Summary Reason For Visit: WEAKNESS RIGHT HAND, CEREBROVASCULAR ACCIDENT CVA Current Active Problems Radial nerve compression (Acute) Weakness of right hand (Acute) Wrist drop (Acute) Condition: Guarded - Instructions Diet, Activity, Other Instructions: continue all medications as prescribed Please follow up with the hand specialist within 1 week please follow up with your primary care physician within 2 weeks if any New or persistent symptoms develop please return to emergency department Referrals: Byron Alfredo MD [Primary Care Provider] - Adrian North MD [Staff Physician] - Sergio Cowart DO [Staff Physician] - 2 Weeks Manny Frias MD [Staff Physician] - 1 Week Disposition: HOME - Home Medications Comprehensive Discharge Medication List: Ambulatory Orders Aspirin [Aspirin EC] 81 mg PO DAILY 12/11/14 Atorvastatin Ca [Lipitor] 10 mg PO HS 12/11/14 Cholecalciferol (Vitamin D3) [Vitamin D3] 1,000 unit PO DAILY 12/11/14 Hydrochlorothiazide [Hctz -] 12.5 mg PO DAILY 12/11/14 Nadolol 20 mg PO DAILY 12/11/14 Ramipril [Altace] 5 mg PO BID 12/11/14 Difluprednate [Durezol] 5 ml OS TID 01/16/15 Amlodipine Besylate 2.5 mg PO DAILY 04/20/18 Aspirin [ASA -] 81 mg PO DAILY 04/20/18 Atorvastatin Calcium [Lipitor] 10 mg PO DAILY 04/20/18 Problem List - Problems (1) Weakness of right hand Code(s): R29.898 - [facility] SYMPTOMS AND SIGNS INVOLVING THE MUSCULOSKELETAL SYSTEM This patient is new to me today: No Emergency Visit: Yes ED Registration Date: 04/20/18 Care time: The patient presented to the Emergency Department on the above date and was hospitalized for further evaluation of their emergent condition. Critical Care patient: No - Discharge Referral Referred to [facility] Med [facility] No
--- NOTE | 2018-04-21 10:43 | EKG ---
Test Reason : Blood Pressure : / mmHG Vent. Rate : 062 BPM Atrial Rate : 062 BPM P-R Int : 196 ms QRS Dur : 116 ms QT Int : 420 ms P-R-T Axes : -28 -46 045 degrees QTc Int : 426 ms NORMAL SINUS RHYTHM LEFT ANTERIOR FASCICULAR BLOCK LEFT VENTRICULAR HYPERTROPHY WITH QRS WIDENING ABNORMAL ECG NO PREVIOUS ECGS AVAILABLE Confirmed by TOMMY MILLER, COLTON ([id number]) on 04/21/2018 10:42:58 AM Referred By: SARAH BOOKER Confirmed By:COLTON SANDERS MD
[2018-04-21] MEDS ORDERED: ASPIRIN 325 MG TABLET PO ONE (12:02)
[2018-04-21] MEDS ORDERED: ATORVASTATIN CA 10 MG TABLET (FP) PO SCH (22:00)
== END 2018-04-21 12:55 | disposition home or self-care (01) ==
LOC: FER 08:48 → MERGE 11:09 → FM/S 11:09
PROVIDERS: ADMIT Hospitalist; ATTEND Nurse Practitioner Family
DX: M62.81 Muscle weakness (generalized) (principal); I10 Essential (primary) hypertension; R73.03 Prediabetes; Z85.828 Personal history of other malignant neoplasm of skin; E78.5 Hyperlipidemia, unspecified; M21.339 Wrist drop, unspecified wrist; G56.30 Lesion of radial nerve, unspecified upper limb; R29.898 Other symptoms and signs involving the musculoskeletal system
CPT/HCPCS: 36415; 70450-TC; 71045-TC-FY; 80053; 80061; 81003; 81015; 82550; 82607; 82962; 83036; 83735; 84100; 84443; 84484; 85025; 85610; 85651; 85730; 86140; 86850; 86900; 86901; 87086; 87186; 93005; 93306-TC; 93880-TC; 97116-GP; 97161-GP; 99285-25; G0378; J1644

== ENCOUNTER 2019-09-24 14:48 | Emergency (ER) | payer OTHER, BC ==
[2019-09-24 15:02] VITALS: BP 113/61; PULSE 87; TEMP 97.8; BMI 25.7
[2019-09-24] MEDS ORDERED: ALBUTEROL SO4 2.5/IPRATROPIUM 0.5 INH SOL 3 ML VIAL.NEB. NEB ONE ×2 (15:19→15:30)
[2019-09-24] MEDS ORDERED: AZITHROMYCIN 250 MG TABLET PO ONE (16:04)
[2019-09-24] MEDS ORDERED: AZITHROMYCIN 250 MG TABLET ONE (16:10)
--- NOTE | 2019-09-24 16:14 | PDOC ---
History of Present Illness - General Chief Complaint: Respiratory Stated Complaint: COUGH & COLD SX, RIGHT EYE PROBLEM Time Seen by Provider: 09/24/19 14:48 - History of Present Illness Initial Comments: 09/24/19 16:08 84yo female with pmhx of htn, hld presents for eval of yellow drainage from R>L eyes this AM. States she has had a cough that is dry x a week. States she has been taking mucinex for the last few days for her cough. Pt states she woke up with itchy eyes and yellow drainage from the eyes. Pt denies blurred vision. Pt denies f/c. No cp/sob. No abd pain. No n/v/d. No dysuria. Pt denies eye trauma. states her eyes feel itchy and are weeping yellow discharge. Past History - Past Medical History Allergies/Adverse Reactions: Allergies Allergy/AdvReac Type Severity Reaction Status Date / Time cephalexin Allergy Rash Verified 09/24/19 14:49 Home Medications: Ambulatory Orders Atorvastatin Ca [Lipitor] 10 mg PO HS 12/11/14 Cholecalciferol (Vitamin D3) [Vitamin D3] 2,000 unit PO DAILY 12/11/14 Ramipril [Altace] 5 mg PO BID 12/11/14 Amlodipine Besylate 2.5 mg PO DAILY 04/20/18 Aspirin [ASA -] 81 mg PO DAILY 04/20/18 Atorvastatin Calcium [Lipitor] 10 mg PO DAILY 04/20/18 Albuterol Sulfate Inhaler - [Ventolin HFA Inhaler -] 1 - 2 inh PO QID PRN #1 inhaler 09/24/19 Azithromycin [Zithromax 250mg Tablets -] 250 mg PO UTDICT #6 tab 09/24/19 Erythromycin 0.5% Eye Ointment [Erythromycin 0.5% Eye Ointment -] 1 applic OU QID 7 Days #1 tube 09/24/19 Inhaler, Assist Devices [Space Chamber Plus] 1 each MC QID PRN #1 spacer Anemia: No Asthma: No Cancer: Yes (SKIN) Cardiac Disorders: No CVA: No COPD: No CHF: No Dementia: No Diabetes: Yes (NO MEDS) GI Disorders: No Disorders: No HTN: Yes Hypercholesterolemia: Yes Liver Disease: No Seizures: No Thyroid Disease: No Other medical history: GLAUCOMA - Surgical History Abdominal Surgery: No Appendectomy: No Cardiac Surgery: No Cholecystectomy: No Lung Surgery: No Neurologic Surgery: No Orthopedic Surgery: No - Psycho Social/Smoking Cessation Hx Smoking History: Never smoked Have you smoked in the past 12 months: No If you are a former smoker, when did you quit?: 40 YEARS AGO Information on smoking cessation initiated: No Hx Alcohol Use: No Drug/Substance Use Hx: No Substance Use Type: None, Alcohol Review of Systems - Review of Systems Able to Perform ROS?: Yes Is the patient limited Danish proficient: No Constitutional: No: Chills, Fever HEENTM: Yes: Tearing, Other (eye discharge that is yellow and red conjuctiva). No: Eye Pain, Blurred Vision, Double Vision, Ear Discharge, Nose Congestion, Throat Pain Respiratory: Yes: Cough. No: Shortness of Breath, SOB with Exertion, SOB at Rest, Wheezing, Productive cough Cardiac (ROS): No: Chest Pain ABD/GI: No: Diarrhea, Nausea, Vomiting, Abdominal cramping : No: Burning, Dysuria Musculoskeletal: No: Back Pain Integumentary: No: Bruising, Rash Neurological: No: Headache, Numbness, Paresthesia All Other Systems: Reviewed and Negative *Physical Exam - Vital Signs Last Vital Signs Temp Pulse Resp BP Pulse Ox 97.8 F 87 18 113/61 97 09/24/19 14:48 09/24/19 14:48 09/24/19 14:48 09/24/19 14:48 09/24/19 14:48 - Physical Exam General Appearance: Yes: Nourished, Appropriately Dressed. No: Apparent Distress HEENT: positive: EOMI, KENNETH, Other (injected conjunctiva and sclera R eye >L, yellow discharge R eye > L eye). negative: Photophobia, Pharyngeal Erythema, Tonsillar Exudate, Nasal Congestion, Rhinorrhea Neck: positive: Supple Respiratory/Chest: positive: Lungs Clear, Normal Breath Sounds. negative: Respiratory Distress, Crackles, Rales, Rhonchi, Wheezing Cardiovascular: positive: Regular Rhythm, Regular Rate, S1, S2 Gastrointestinal/Abdominal: positive: Soft. negative: Guarding, Rebound, Tenderness Musculoskeletal: positive: Normal Inspection. negative: CVA Tenderness Extremity: positive: Normal Capillary Refill, Normal Inspection, Normal Range of Motion. negative: Swelling, Calf Tenderness Integumentary: positive: Normal Color, Dry, Warm. 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, Fully Oriented, Alert, Normal Mood/ Affect, Normal Response, Motor Strength 12/26 ED Treatment Course - RADIOLOGY Radiology Studies Ordered: Category Date Time Status CHEST PA & LAT [RAD] Stat Radiology 09/24/19 15:19 Taken - Medications Given in the ED: ED Medications Discontinued Medications Generic Name Dose Route Start Last Admin Trade Name Wayne PRN Reason Stop Dose Admin Albuterol/Ipratropium 1 amp 09/24/19 15:19 09/24/19 15:35 Duoneb - NEB 09/24/19 15:20 1 amp ONCE ONE Administration Medical Decision Making - Medical Decision Making 09/24/19 16:16 a/p: 84yo female with cough x 1 week, b/l R>L eye discharge and redness -eyes are consistent with conjunctivitis- will start abx -lungs clear, but has a dry cough - will give neb and obtain cxr -pt is nontoxic in appearance -will monitor and reassess 09/24/19 16:17 pt feels better after neb will send home with azithromycin, erythromycin, albuterol inhaler -pt will follow up with Dr. Alfredo pt will also need ophtho follow up this week answered all questions pt stable for dc to home Discharge - Discharge Information Problems reviewed: Yes Clinical Impression/Diagnosis: Bronchitis, Acute bacterial conjunctivitis of both eyes Condition: Stable Disposition: HOME - Admission No - Additional Discharge Information Prescriptions: Albuterol Sulfate Inhaler - [Ventolin HFA Inhaler -] 1 - 2 inh PO QID PRN #1 inhaler PRN Reason: Cough Azithromycin [Zithromax 250mg Tablets -] 250 mg PO UTDICT #6 tab Erythromycin 0.5% Eye Ointment [Erythromycin 0.5% Eye Ointment -] 1 applic OU QID 7 Days #1 tube Inhaler, Assist Devices [Space Chamber Plus] 1 each MC QID PRN #1 spacer PRN Reason: Cough - Follow up/Referral Referrals: Byron Alfredo MD [Primary Care Provider] - Spencer Bell MD [Staff Physician] - - Patient Discharge Instructions Patient Printed Discharge Instructions: DI for Acute Bronchitis, DI for Conjunctivitis Additional Instructions: Please take all medications as prescribed. Please use the eye ointment in both eyes 4x per day for the next 7 days. Please make an appointment to see your PMD and the opthomologist this week. Please return to the ER with any further concerns or complaints. Please use the albuterol inhaler as needed for cough. - Post Discharge Activity
== END 2019-09-24 16:45 | disposition home or self-care (01) ==
LOC: FER 14:48
PROC: 3E0F7GC Introduction of Other Therapeutic Substance into Respiratory Tract, Via Natural or Artificial Opening (ICD-10-PCS; principal; 2019-09-24)
DX: H10.33 Unspecified acute conjunctivitis, bilateral (principal); J40 Bronchitis, not specified as acute or chronic; Z88.1 Allergy status to other antibiotic agents; Z87.891 Personal history of nicotine dependence; E78.00 Pure hypercholesterolemia, unspecified; I10 Essential (primary) hypertension; H40.9 Unspecified glaucoma; E11.9 Type 2 diabetes mellitus without complications
CPT/HCPCS: 71046-TC-FY; 99282-25

== ENCOUNTER 2021-05-25 09:55 | Inpatient (IN) | payer OTHER, BC ==
[2021-05-25] MEDS ORDERED: ASPIRIN 81 MG CHEWABLE TABLETS PO ONE (10:34)
[2021-05-25] MEDS ORDERED: ASPIRIN 81 MG CHEWABLE TABLETS ONE (10:43)
[2021-05-25 11:01] LABS: BASO % 1.6 % (0-2.0); EOS % 9.2 % (0-4.5); HEMATOCRIT 40.5 % (32.4-45.2); HEMOGLOBIN 13.6 GM/dl (10.7-15.3); LYMPH % 15.4 % (8-40); MCH 30.1 pg (25.7-33.7); MCHC 33.7 g/dl (32.0-36.0); MEAN CELL VOLUME 89.5 fl (80-96); MEAN PLT VOLUME 8.6 fl (7.5-11.1); MONO % 5.5 % (3.8-10.2); NEUT % 68.3 % (42.8-82.8); PLATELET COUNT 246 10^3/uL (134-434); RBC 4.52 M/mm3 (3.60-5.2); RDW 13.7 % (11.6-15.6); WHITE BLOOD COUNT 7.5 K/mm3 (4.0-10.8)
[2021-05-25 11:04] LABS: ACTIVATED PTT 25.3 SECONDS (25.2-36.5)
[2021-05-25 11:06] LABS: ALBUMIN 4.1 g/dl (3.4-5.0); BILIRUBIN,TOTAL 1.5 mg/dl (0.2-1); CALCIUM 10.3 mg/dl (8.5-10); TOT PROT 7.3 g/dl (6.4-8.2)
[2021-05-25 11:08] LABS: INR 1.01 (0.82-1.09); PROTHROMBIN TIME (PATIENT) 11.3 SEC (10.2-13.0)
[2021-05-25] MEDS ORDERED: TORSEMIDE 20 MG TABLET (FP) PO PRN (15:47)
[2021-05-25 16:56] LABS: N-TERMINAL BNP 210 pg/ml (5-450)
[2021-05-25] MEDS: ENOXAPARIN NA (PORCINE) 40 MG/0.4 ML DISP.SYRIN SQ SCH (19:45)
[2021-05-25] MEDS ORDERED: ENOXAPARIN NA (PORCINE) 60 MG/0.6 ML DISP.SYRIN SQ ONE (19:49)
[2021-05-25] MEDS: INSULIN SLIDING SCALE (NOVOLOG) 1 VIAL SQ SCH (20:39)
[2021-05-25] MEDS ORDERED: INSULIN (NOVOLOG) ASPART 100 UNITS/ML 10ML VIAL ONE (20:43)
[2021-05-25] MEDS ORDERED: ATORVASTATIN CA 20 MG TABLET (FP) ONE (21:57)
[2021-05-25] MEDS: ATORVASTATIN CA 20 MG TABLET (FP) PO SCH (22:02)
[2021-05-25] MEDS: ENALAPRIL MALEATE 10 MG TABLET PO SCH (22:02)
[2021-05-26 09:23] LABS: HEMATOCRIT 37.9 % (32.4-45.2); HEMOGLOBIN 12.5 GM/dl (10.7-15.3); LYMPH % 25.1 % (8-40); MCH 29.4 pg (25.7-33.7); MCHC 32.9 g/dl (32.0-36.0); MEAN CELL VOLUME 89.4 fl (80-96); MEAN PLT VOLUME 8.9 fl (7.5-11.1); MONO % 6.7 % (3.8-10.2); NEUT % 54.9 % (42.8-82.8); PLATELET COUNT 229 10^3/uL (134-434); RBC 4.24 M/mm3 (3.60-5.2); RDW 13.7 % (11.6-15.6); WHITE BLOOD COUNT 7.1 K/mm3 (4.0-10.8)
[2021-05-26 09:24] LABS: BASO % 3.9 % (0-2.0); EOS % 9.4 % (0-4.5)
[2021-05-26 09:55] LABS: CALCIUM 9.9 mg/dl (8.5-10); CREATININE 0.9 mg/dl (0.55-1.3)
[2021-05-26 09:56] LABS: ALBUMIN 3.5 g/dl (3.4-5.0); BILIRUBIN,TOTAL 1.4 mg/dl (0.2-1); TOT PROT 6.3 g/dl (6.4-8.2)
[2021-05-26] MEDS ORDERED: amLODIPine BESYLATE 5 MG TABLET (FP) ONE (11:22)
[2021-05-26] MEDS ORDERED: ENOXAPARIN NA (PORCINE) 60 MG/0.6 ML DISP.SYRIN SQ ONE (11:22)
[2021-05-26] MEDS ORDERED: ASPIRIN COATED 81 MG TABLET.EC ONE (11:22)
[2021-05-26] MEDS ORDERED: INSULIN (NOVOLOG) ASPART 100 UNITS/ML 10ML VIAL ONE (11:25)
[2021-05-26] MEDS: INSULIN SLIDING SCALE (NOVOLOG) 1 VIAL SQ SCH ×4 (11:30→22:30)
[2021-05-26] MEDS: PSYLLIUM 5.85 GM PACKET PO SCH (11:31)
[2021-05-26] MEDS: LACTOBACILLUS ACIDOPHILUS 1 TABLET PO SCH (11:31)
[2021-05-26] MEDS: ASPIRIN 81 MG CHEWABLE TABLETS PO SCH (11:31)
[2021-05-26] MEDS: ENALAPRIL MALEATE 10 MG TABLET PO SCH ×2 (11:31→21:49)
[2021-05-26] MEDS: amLODIPine BESYLATE 5 MG TABLET (FP) PO SCH (11:31)
[2021-05-26] MEDS: CHOLECALCIFEROL (VIT D3) 1,000 UNIT (25 MCG) TABLET PO SCH (11:31)
[2021-05-26] MEDS: ENOXAPARIN NA (PORCINE) 40 MG/0.4 ML DISP.SYRIN SQ SCH (11:31)
[2021-05-26 20:15] VITALS: BMI 27.4
[2021-05-26] MEDS: ATORVASTATIN CA 20 MG TABLET (FP) PO SCH (21:49)
[2021-05-27] MEDS: INSULIN SLIDING SCALE (NOVOLOG) 1 VIAL SQ SCH ×2 (06:18→11:38)
[2021-05-27 06:37] LABS: BASO % 0.6 % (0-2.0); EOS % 9.4 % (0-4.5); HEMOGLOBIN 12.4 GM/dL (10.7-15.3); LYMPH % 28.8 % (8-40); MCH 29.9 pg (25.7-33.7); MCHC 33.5 g/dl (32.0-36.0); MEAN CELL VOLUME 89.4 fl (80-96); MEAN PLT VOLUME 8.6 fl (7.5-11.1); MONO % 6.4 % (3.8-10.2); NEUT % 54.8 % (42.8-82.8); PLATELET COUNT 212 10^3/uL (134-434); RBC 4.14 M/mm3 (3.60-5.2); RDW 14.6 % (11.6-15.6); WHITE BLOOD COUNT 6.6 K/mm3 (4.0-10.0)
[2021-05-27 06:59] LABS: ALBUMIN 3.1 g/dl (3.4-5.0); BLOOD UREA NITROGEN 11.6 mg/dL (7-18); CALCIUM 9.8 mg/dL (8.5-10.1)
[2021-05-27 07:00] LABS: MAGNESIUM 2.3 mg/dL (1.8-2.4)
[2021-05-27 07:02] LABS: CREATININE 0.8 mg/dL (0.55-1.3); PHOSPHOROUS 2.6 mg/dL (2.5-4.9)
[2021-05-27 07:03] LABS: BILIRUBIN,TOTAL 1.5 mg/dL (0.2-1); TOT PROT 6.4 g/dl (6.4-8.2)
[2021-05-27 07:44] LABS: ERYTHROCYTE SEDIMENTATION RATE 17 mm/hr (0-30)
[2021-05-27] MEDS: LACTOBACILLUS ACIDOPHILUS 1 TABLET PO SCH (09:16)
[2021-05-27] MEDS: ASPIRIN 81 MG CHEWABLE TABLETS PO SCH (09:16)
[2021-05-27] MEDS: amLODIPine BESYLATE 5 MG TABLET (FP) PO SCH (09:17)
[2021-05-27] MEDS: ENALAPRIL MALEATE 10 MG TABLET PO SCH (09:17)
[2021-05-27] MEDS: ENOXAPARIN NA (PORCINE) 40 MG/0.4 ML DISP.SYRIN SQ SCH (09:17)
[2021-05-27] MEDS: CHOLECALCIFEROL (VIT D3) 1,000 UNIT (25 MCG) TABLET PO SCH (09:17)
[2021-05-27] MEDS: PSYLLIUM 5.85 GM PACKET PO SCH (14:27)
[2021-05-27 16:40] VITALS: BP 150/80; PULSE 66; TEMP 97.5
== END 2021-05-27 17:00 | disposition home or self-care (01) | DRG 179 ==
LOC: FER 09:55 → JERBED 16:22 → J2W 05-26 19:35
PROVIDERS: ADMIT Internal Medicine; ATTEND Internal Medicine
DX: U07.1 COVID-19 (principal); R07.89 Other chest pain; I10 Essential (primary) hypertension; E78.5 Hyperlipidemia, unspecified; R73.03 Prediabetes
CPT/HCPCS: 36415; 71045-TC-FY; 80053; 80061; 82550; 82728; 82962; 83036; 83615; 83735; 83880; 83970; 84100; 84443; 84484; 85025; 85379; 85610; 85651; 85730; 93005; 93970-TC; 99285-25; C9803; U0003; U0005

== ENCOUNTER 2021-06-19 14:10 | Observation (INO) | payer OTHER, BC ==
[2021-06-19 15:29] LABS: ACTIVATED PTT 24.8 SECONDS (25.2-36.5)
[2021-06-19 15:34] LABS: INR 1.02 (0.82-1.09); PROTHROMBIN TIME (PATIENT) 11.3 SEC (10.2-13.0)
[2021-06-19 15:42] LABS: BASO % 2.8 % (0-2.0); EOS % 3.2 % (0-4.5); HEMATOCRIT 38.6 % (32.4-45.2); HEMOGLOBIN 12.6 GM/dl (10.7-15.3); LYMPH % 21.8 % (8-40); MCH 29.5 pg (25.7-33.7); MCHC 32.6 g/dl (32.0-36.0); MEAN CELL VOLUME 90.4 fl (80-96); MEAN PLT VOLUME 9.1 fl (7.5-11.1); MONO % 4.3 % (3.8-10.2); NEUT % 67.9 % (42.8-82.8); PLATELET COUNT 240 10^3/uL (134-434); RBC 4.27 M/mm3 (3.60-5.2); RDW 13.6 % (11.6-15.6); WHITE BLOOD COUNT 7.7 K/mm3 (4.0-10.8)
[2021-06-19 15:59] LABS: ALBUMIN 3.7 g/dl (3.4-5.0); ALK PHOS 78 U/L (45-117); ANION GAP 9 MMOL/L (8-16); BILIRUBIN,TOTAL 1.7 mg/dl (0.2-1); CALCIUM 9.8 mg/dl (8.5-10); CHLORIDE 103 mmol/L (98-107); CO2 22 mmol/L (21-32); CREATININE 0.9 mg/dl (0.55-1.3); GLUCOSE,RANDOM 197 mg/dl (74-106); SGOT/AST 26 U/L (15-37); SGPT/ALT 11 U/L (13-61); SODIUM 134 mmol/L (136-145); TOT PROT 6.7 g/dl (6.4-8.2)
[2021-06-19 18:54] LABS: N-TERMINAL BNP 133.7 pg/ml (5-450)
[2021-06-19] MEDS ORDERED: ASPIRIN 81 MG CHEWABLE TABLETS PO ONE (19:36)
[2021-06-19] MEDS ORDERED: ASPIRIN 81 MG CHEWABLE TABLETS ONE (19:39)
[2021-06-19 22:46] VITALS: BMI 25.7
[2021-06-20] MEDS ORDERED: ATORVASTATIN CA 20 MG TABLET (FP) PO SCH (01:02)
[2021-06-20] MEDS ORDERED: amLODIPine BESYLATE 5 MG TABLET (FP) PO SCH (01:03)
[2021-06-20] MEDS: ENALAPRIL MALEATE 10 MG TABLET PO SCH ×2 (02:50→09:27)
[2021-06-20 08:23] LABS: CALCIUM 10.5 mg/dl (8.5-10); CREATININE 0.9 mg/dl (0.55-1.3)
[2021-06-20 08:31] LABS: BASO % 2.9 % (0-2.0); EOS % 9.6 % (0-4.5); HEMATOCRIT 40.7 % (32.4-45.2); HEMOGLOBIN 13.3 GM/dl (10.7-15.3); LYMPH % 26.8 % (8-40); MCH 29.3 pg (25.7-33.7); MCHC 32.6 g/dl (32.0-36.0); MEAN CELL VOLUME 89.8 fl (80-96); MEAN PLT VOLUME 9.2 fl (7.5-11.1); MONO % 5.9 % (3.8-10.2); NEUT % 54.8 % (42.8-82.8); PLATELET COUNT 238 10^3/uL (134-434); RBC 4.53 M/mm3 (3.60-5.2); RDW 13.8 % (11.6-15.6)
[2021-06-20] MEDS ORDERED: ASPIRIN 81 MG CHEWABLE TABLETS PO SCH (10:00)
[2021-06-20] MEDS ORDERED: TORSEMIDE 20 MG TABLET (FP) PO SCH (10:00)
[2021-06-20] MEDS ORDERED: ENOXAPARIN NA (PORCINE) 40 MG/0.4 ML DISP.SYRIN SQ SCH (10:00)
[2021-06-20] MEDS ORDERED: CHOLECALCIFEROL (VIT D3) 1,000 UNIT (25 MCG) TABLET PO SCH (10:00)
[2021-06-20 14:08] VITALS: BP 134/53; PULSE 69; TEMP 98.5
== END 2021-06-20 18:50 | disposition home or self-care (01) ==
LOC: FER 14:10 → UNDOADMIN 20:20 → FM/S 20:20 → FER 21:51 → FM/S 21:53 → UNDODISOB 06-20 13:01
PROVIDERS: ADMIT Internal Medicine Geriatric Medicine; ATTEND Nurse Practitioner Acute Care
PROC: 3E013GC Introduction of Other Therapeutic Substance into Subcutaneous Tissue, Percutaneous Approach (ICD-10-PCS; principal; 2021-06-19)
DX: R07.89 Other chest pain (principal); I10 Essential (primary) hypertension; E78.5 Hyperlipidemia, unspecified; Z86.16 Personal history of COVID-19; Z85.828 Personal history of other malignant neoplasm of skin; Z88.8 Allergy status to other drugs, medicaments and biological substances; Z79.82 Long term (current) use of aspirin; Z87.891 Personal history of nicotine dependence; R60.0 Localized edema
CPT/HCPCS: 36415; 71045-TC-FY; 80048; 80053; 82550; 83880; 84484; 85025; 85610; 85730; 93005; 93306-TC; 96372; 99285-25; C9803; G0378; U0003; U0005

== ENCOUNTER 2022-02-25 11:59 | Emergency (ER) | payer OTHER, BC ==
[2022-02-25 12:21] VITALS: BP 114/66; PULSE 73; TEMP 98.2; BMI 26.4
[2022-02-25] MEDS ORDERED: ACETAMINOPHEN 325 MG TABLET (FP) PO ONE (12:59)
[2022-02-25] MEDS ORDERED: ACETAMINOPHEN 325 MG TABLET (FP) ONE (13:32)
== END 2022-02-25 14:56 | disposition home or self-care (01) ==
LOC: FER 11:59
DX: M79.651 Pain in right thigh (principal)
CPT/HCPCS: 73502-TC-RT-FY; 99283-25

== ENCOUNTER 2023-11-05 13:45 | Emergency (ER) | payer OTHER, BC ==
[2023-11-05 13:59] VITALS: BP 119/83; PULSE 50; RESP 18; TEMP 98.1; BMI 29.2
== END 2023-11-05 14:41 | disposition home or self-care (01) ==
LOC: FER 13:45
DX: S41.111A Laceration without foreign body of right upper arm, initial encounter (principal); W22.8XXA Striking against or struck by other objects, initial encounter
CPT/HCPCS: 99282-25

== ENCOUNTER 2024-04-30 11:08 | Day surgery (SDC) | payer OTHER, BC ==
[2024-04-30] MEDS: ZOLEDRONIC ACID/MAN/WATER 5 MG/100 ML INFUS..BTL IVPB ONE (11:41)
[2024-04-30 12:27] VITALS: BP 134/60; PULSE 74; RESP 14; TEMP 98.2
== END 2024-04-30 12:48 | disposition home or self-care (01) ==
LOC: FINFUSION 11:08 → FM/S 11:09 → FINFUSION 12:48
PROVIDERS: ATTEND Internal Medicine Endocrinology, Diabetes & Metabolism
PROC: 3E033GC Introduction of Other Therapeutic Substance into Peripheral Vein, Percutaneous Approach (ICD-10-PCS; principal; 2024-04-30)
DX: M81.0 Age-related osteoporosis without current pathological fracture (principal)
CPT/HCPCS: 96365; J3489